=== PATIENT | female | born 1990 | race Caucasian/White ===

== ENCOUNTER 2021-03-13 11:50 | Emergency (ER) | payer OTHER ==
[~2021-03-13] VITALS: Ht 167.6 cm; Wt 77.3 kg
[2021-03-13 11:59] VITALS: BP 117/64
[2021-03-13] MEDS ORDERED: ADDE30CA3 PO (12:00)
[2021-03-13] MEDS ORDERED: ACET-897 PO (12:00)
[2021-03-13 12:30] LABS: BASO % 0.6 % (0.0-1.0); EOS % 0.4 % (0.0-3.0); HEMATOCRIT 39.6 % (36.0-47.0); HEMOGLOBIN 13.1 g/dl (12.0-15.5); LYMPH # 1.6 10^3/uL (1.5-5.0); LYMPH % 30.9 % (24.0-44.0); MEAN CORPUSCULAR HEMOGLOBIN 29.9 pg (27.0-33.0); MEAN CORPUSCULAR HGB CONC 33.1 g/dl (32.0-36.5); MEAN CORPUSCULAR VOLUME 90.4 fl (80.0-96.0); MONO # 0.4 10^3/uL (0.0-0.8); MONO % 8.3 % (2.0-8.0); NEUTROPHILS # 3.1 10^3/uL (1.5-8.5); NEUTROPHILS % 59.6 % (36.0-66.0); PLATELET COUNT, AUTOMATED 258 10^3/uL (150-450); RED BLOOD COUNT 4.38 10^6/uL (4.00-5.40); WHITE BLOOD COUNT 5.2 10^3/uL (4.0-10.0)
[2021-03-13] MEDS ORDERED: KETOROLAC 30 MG/ML 1ML VIAL IV ONE (12:55)
[2021-03-13 12:58] LABS: BLOOD UREA NITROGEN 11 MG/DL (7-18); CALCIUM LEVEL 8.6 MG/DL (8.5-10.1); CARBON DIOXIDE LEVEL 29 MEQ/L (21-32); CHLORIDE LEVEL 108 MEQ/L (98-107); GLOMERULAR FILTRATION RATE > 60.0 (>60); GLUCOSE, FASTING 93 MG/DL (70-100); POTASSIUM SERUM 4.2 MEQ/L (3.5-5.1); SODIUM LEVEL 141 MEQ/L (136-145)
[2021-03-13] MEDS ORDERED: NS 1,000 ML IV ONE (13:05)
[2021-03-13] MEDS ORDERED: MORPHINE 2 MG/ML 1ML VIAL (J2270) IV ONE (13:30)
--- NOTE | 2021-03-13 15:05 | REP ---
INDICATION: RLQ pain; hx of ovarian cysts. COMPARISON: None. TECHNIQUE: Transabdominal and transvaginal scanning were performed. FINDINGS: Uterine dimensions are normal at 8.4 x 4.0 x 5.3 cm. Endometrial echo is 0.5 cm thick and centrally placed. No free fluid is seen in the cul-de-sac. Visualized bladder kearns are smooth. The right ovary has dimensions of 3.7 x 2.8 x 2.8 cm. It's Doppler flow is normal with a resistive index of 0.73. There is a 2.4 x 2.3 x 2.2 cm simple cyst in the right ovary. The left ovary dimensions are normal as well at 2.4 x 1.4 x 1.6 cm. It's Doppler flow was normal with resistive index of 0.72. IMPRESSION: Normal pelvic sonography. 2.4 cm follicle cyst right ovary. <Electronically signed by Bg Melendez > 03/13/21 [id number]
[2021-03-13] MEDS ORDERED: HYDR-3713 PO (15:41)
== END 2021-03-13 23:07 | disposition home or self-care (01) ==
LOC: EDBD 11:50 → M ED 11:50
DX: N83.201 Unspecified ovarian cyst, right side (principal); F90.9 Attention-deficit hyperactivity disorder, unspecified type; Z79.899 Other long term (current) drug therapy; Z88.1 Allergy status to other antibiotic agents; Z88.2 Allergy status to sulfonamides; Z88.8 Allergy status to other drugs, medicaments and biological substances; Z87.42 Personal history of other diseases of the female genital tract
CPT/HCPCS: 76830; 76856; 80048; 81001; 84702; 85025; 93976; 96374; 96375; 99283; J1885; J2270

== ENCOUNTER → 2021-06-04 | Outpatient (REF) | payer OTHER ==
[~2021-06-04] MED LIST: ACET-897 PO; ADDE30CA3 PO; HYDR-3713 PO
[2021-06-04 17:00] LABS: HEMATOCRIT 39.1 % (36.0-47.0); HEMOGLOBIN 13.2 g/dl (12.0-15.5); MEAN CORPUSCULAR HEMOGLOBIN 30.1 pg (27.0-33.0); MEAN CORPUSCULAR HGB CONC 33.8 g/dl (32.0-36.5); MEAN CORPUSCULAR VOLUME 89.3 fl (80.0-96.0); PLATELET COUNT, AUTOMATED 307 10^3/uL (150-450); RED BLOOD COUNT 4.38 10^6/uL (4.00-5.40); WHITE BLOOD COUNT 9.9 10^3/uL (4.0-10.0)
[2021-06-04 18:50] LABS: HCG, SERUM QUANTITATIVE 108948 MIU/ML; HEPATITIS B SURFACE ANTIGEN NEGATIVE (NEGATIVE); HEPATITIS C VIRUS ABY INDEX < 0.0 INDEX (<0.8); HIV 1&2 SCREEN CENTAUR NEGATIVE (NEGATIVE)
== END ==
LOC: M LAB REF 16:23
PROVIDERS: ATTEND Advanced Practice Midwife
DX: O36.80X0 Pregnancy with inconclusive fetal viability, not applicable or unspecified (principal); Z32.01 Encounter for pregnancy test, result positive; Z3A.00 Weeks of gestation of pregnancy not specified

== ENCOUNTER 2021-07-15 17:54 | Emergency (ER) | payer OTHER ==
[~2021-07-15] VITALS: Ht 167.6 cm; Wt 80.2 kg
[2021-07-15] MEDS ORDERED: PRENTAB9 PO (18:05)
[2021-07-15] MEDS ORDERED: ZOFR4TAB16 PO (18:05)
[2021-07-15] MEDS ORDERED: PYRI25TA2 PO (18:05)
[2021-07-15] MEDS ORDERED: ONDANSETRON 4MG/2ML VIAL IV ONE (23:35)
[2021-07-15] MEDS ORDERED: NS 1,000 ML IV ONE (23:35)
[2021-07-16 00:21] LABS: BASO % 0.2 % (0.0-1.0); EOS % 0.4 % (0.0-3.0); HEMATOCRIT 37.9 % (36.0-47.0); HEMOGLOBIN 12.9 g/dl (12.0-15.5); LYMPH # 2.9 10^3/uL (1.5-5.0); LYMPH % 30.1 % (24.0-44.0); MEAN CORPUSCULAR HEMOGLOBIN 30.6 pg (27.0-33.0); MEAN CORPUSCULAR VOLUME 89.8 fl (80.0-96.0); MONO # 0.7 10^3/uL (0.0-0.8); MONO % 7.2 % (2.0-8.0); NEUTROPHILS # 5.9 10^3/uL (1.5-8.5); NEUTROPHILS % 61.7 % (36.0-66.0); PLATELET COUNT, AUTOMATED 279 10^3/uL (150-450); RED BLOOD COUNT 4.22 10^6/uL (4.00-5.40); WHITE BLOOD COUNT 9.6 10^3/uL (4.0-10.0)
[2021-07-16] MEDS ORDERED: ACETAMINOPHEN 325 MG TAB PO ONE (00:25)
[2021-07-16 00:47] LABS: ALBUMIN 3.4 GM/DL (3.2-5.2); ALT/SGPT 30 U/L (12-78); BILIRUBIN,DIRECT < 0.1 MG/DL (0.0-0.2); BILIRUBIN,TOTAL 0.3 MG/DL (0.2-1.0); BLOOD UREA NITROGEN 8 MG/DL (7-18); CALCIUM LEVEL 8.4 MG/DL (8.5-10.1); CARBON DIOXIDE LEVEL 26 MEQ/L (21-32); CHLORIDE LEVEL 104 MEQ/L (98-107); CREATININE FOR GFR 0.54 MG/DL (0.55-1.30); GLOMERULAR FILTRATION RATE > 60.0 (>60); GLUCOSE, FASTING 83 MG/DL (70-100); LIPASE 90 U/L (73-393); POTASSIUM SERUM 3.7 MEQ/L (3.5-5.1); SODIUM LEVEL 137 MEQ/L (136-145); TOTAL PROTEIN 7.2 GM/DL (6.4-8.2)
[2021-07-16 01:32] LABS: RSV AMPLIFICATION NEGATIVE (NEGATIVE)
[2021-07-16 02:00] VITALS: BP 106/58
--- NOTE | 2021-07-16 02:13 | REPVR ---
PROCEDURE INFORMATION: Exam: US , Limited Exam date and time: 07/16/2021 12:28 AM Age: 30 years old Clinical indication: Lmp or gestational age (in weeks): 15w 6d; Antepartum complications; Other: Maternal dehydration; ; Additional info: Dehydration/feeling ill/ TECHNIQUE: Imaging protocol: Real-time ultrasound of the maternal uterus with image documentation. Exam focused on the clinical indication. COMPARISON: US PELVIC NON-OB COMPLETE 2021-03-13 14:05 FINDINGS: Gestation: Living intrauterine gestation. heart rate: heart rate 152 bpm. presentation: Transverse presentation. Placenta: Grade 0 posterior placenta. No placenta previa. Amniotic fluid: Normal amniotic fluid. BIOMETRY: Estimated due date (AUA): Estimated due date 01/01/2022. Gestational age (AUA): Gestational age 15 weeks and 6 days. MATERNAL: Cervix: Closed 3.7 cm cervix. IMPRESSION: Unremarkable limited exam. Living intrauterine gestation measuring 15 weeks and 6 days with due date 01/01/2022. Electronically signed by: Farhad Lares On 07/16/2021 02:12:40 AM
== END 2021-07-16 02:04 | disposition home or self-care (01) ==
LOC: M ED 17:54
DX: O21.1 Hyperemesis gravidarum with metabolic disturbance (principal); O26.892 Other specified pregnancy related conditions, second trimester; Z3A.15 15 weeks gestation of pregnancy; Z88.2 Allergy status to sulfonamides; Z88.8 Allergy status to other drugs, medicaments and biological substances
CPT/HCPCS: 76815; 80053; 82248; 83690; 85025; 87631; 96361; 96374; 99284; J2405

== ENCOUNTER → 2021-12-10 | Outpatient (REF) | payer OTHER ==
[~2021-12-10] MED LIST changes: +BUSP5TA PO; +ONDA-83 PO; +PEPC1TAB5 PO; +PRENTAB9 PO; +PYRI25TA2 PO; +ZOFR4TAB16 PO
== END ==
LOC: M LAB REF 12:27
PROVIDERS: ATTEND Obstetrics & Gynecology
DX: Z34.83 Encounter for supervision of other normal pregnancy, third trimester (principal)

== ENCOUNTER 2021-12-23 05:33 | Inpatient (IN) | payer OTHER ==
[2021-12-23] VITALS (8 sets, daily range): BP systolic 105–131; BP diastolic 53–69
[~2021-12-23] VITALS: Ht 167.6 cm; Wt 99.4 kg
[2021-12-23 06:17] LABS: HEMATOCRIT 36.4 % (36.0-47.0); HEMOGLOBIN 12.4 g/dl (12.0-15.5); MEAN CORPUSCULAR HEMOGLOBIN 31.3 pg (27.0-33.0); MEAN CORPUSCULAR HGB CONC 34.1 g/dl (32.0-36.5); MEAN CORPUSCULAR VOLUME 91.9 fl (80.0-96.0); PLATELET COUNT, AUTOMATED 256 10^3/uL (150-450); RED BLOOD COUNT 3.96 10^6/uL (4.00-5.40); WHITE BLOOD COUNT 9.6 10^3/uL (4.0-10.0)
[2021-12-23] MEDS ORDERED: OXYTOCIN DRIP 30 UNITS in IV 1 EA IV PRN (06:20)
[2021-12-23] MEDS ORDERED: BICITRA 30ML SOLN UDC PO ONE (06:20)
[2021-12-23] MEDS ORDERED: TUMS500C PO (06:20)
[2021-12-23] MEDS ORDERED: TRANEXAMIC ACID INJection 1,000 MG in NS 100 ML IV PRN (06:20)
[2021-12-23] MEDS ORDERED: CARBOPROST TROMETHAMINE 250 MCG/ML AMP IM PRN (06:20)
[2021-12-23] MEDS ORDERED: HOME MED LIST COMPLETE! XX SCH (06:20)
[2021-12-23] MEDS ORDERED: ACET325C5 PO (06:20)
[2021-12-23] MEDS ORDERED: ceFAZolin SOD 2 GM in IV 1 EA IV ONE (06:20)
[2021-12-23] MEDS ORDERED: METHYLERGONOVINE MALEATE 0.2 MG/ML VIAL (J2210) IM PRN (06:20)
[2021-12-23] MEDS: LR 1,000 ML IV SCH ×2 (06:38→07:17)
[2021-12-23] MEDS ORDERED: ONDANSETRON 4MG/2ML VIAL As Ordered ONE (07:52)
[2021-12-23] MEDS ORDERED: MORPHINE PRES-FREE INJ 10 MG/10 ML VIAL As Ordered ONE (07:52)
[2021-12-23] MEDS ORDERED: NALOXONE INJ 0.4MG/1ML VIAL (J2310 PER 1MG) IV PRN ×2 (07:56)
[2021-12-23] MEDS ORDERED: ONDANSETRON 4MG/2ML VIAL IV PRN ×2 (07:56→09:30)
[2021-12-23] MEDS ORDERED: diphenhydrAMINE 50MG/ML VIAL (J1200) IV PRN (07:56)
[2021-12-23] MEDS ORDERED: METOCLOPRAMIDE INJ 10MG/2ML VIAL (J2765 PER 1) IV PRN (07:56)
[2021-12-23] MEDS ORDERED: ACETAMINOPHEN 1000MG 100ML IV BTL (OFIRMEV) (J0131 PER 10MG) As Ordered ONE (08:04)
[2021-12-23] MEDS ORDERED: ePHEDrine SULFATE 25 MG/5 ML(5MG/ML) SYRINGE As Ordered ONE ×2 (08:06→08:09)
[2021-12-23] MEDS ORDERED: METOCLOPRAMIDE INJ 10MG/2ML VIAL (J2765 PER 1) As Ordered ONE (08:11)
[2021-12-23] MEDS ORDERED: KETOROLAC 60MG 2ML VIAL As Ordered ONE (08:16)
[2021-12-23] MEDS ORDERED: OXYTOCIN 30 UNITS IN 0.9% NaCl 500ML IV BAG (J2590) As Ordered ONE ×2 (08:29→08:40)
[2021-12-23 08:42] LABS: CORD GAS ABE A -1.1; CORD GAS HCO3 A 25.4 MEQ/L; CORD GAS O2 SAT A 29.8 %; CORD GAS PCO2 A 49.3 mmHg; CORD GAS PH A 7.329 UNITS; CORD GAS PO2 A 15.1 mmHg; CORD GAS SBC A 22.1 MEQ/L; CORD GAS TCO2 A 26.9 MEQ/L
[2021-12-23 08:43] LABS: CORD GAS HCO3 V 25.4 MEQ/L; CORD GAS PCO2 V 44.3 mmHg; CORD GAS PH V 7.377 UNITS; CORD GAS PO2 V 21.7 mmHg; CORD GAS SBC V 23.5 MEQ/L; CORD GAS TCO2 V 26.8 MEQ/L
[2021-12-23] MEDS ORDERED: MEASLES,MUMPS,RUBELLA VACCINE INJ (MMR-II) (90707) SC SCH (09:00)
[2021-12-23] MEDS ORDERED: SCOPOLAMINE 1MG TRANSDERMAL PATCH TOP SCH (09:00)
[2021-12-23] MEDS ORDERED: RHOGAM 300 MCG (1500 IU) INJ (J2790) IM SCH (09:00)
[2021-12-23] MEDS ORDERED: OXYTOCIN DRIP 30 UNITS in IV 1 EA IV SCH (09:00)
[2021-12-23] MEDS: DOCUSATE SODIUM 100MG CAPSULE PO SCH ×2 (09:00→20:45)
[2021-12-23] MEDS: PRENATAL VITAMINS CHEWABLE TABLET PO SCH (09:00)
[2021-12-23] MEDS ORDERED: MOM 30ML SUSPENSION UDC PO PRN (09:00)
[2021-12-23] MEDS ORDERED: oxyCODONE 5MG TAB PO PRN (09:30)
[2021-12-23] MEDS ORDERED: LR 1,000 ML IV SCH (09:30)
[2021-12-23] MEDS ORDERED: fentaNYL 100 MCG/2 ML INJECTION IV PRN (09:30)
[2021-12-23] MEDS ORDERED: CALCIUM CARBONATE 500 MG CHEW U/D PO PRN (10:10)
[2021-12-23] MEDS ORDERED: ONDANSETRON 4MG/2ML VIAL IV STA (12:39)
[2021-12-23] MEDS: KETOROLAC 30 MG/ML 1ML VIAL IV SCH ×2 (14:40→20:45)
[2021-12-23] MEDS: PERCOCET 5MG/325MG TAB PO PRN ×2 (16:44→22:56)
[2021-12-23] MEDS: SIMETHICONE 80MG CHEW TAB PO PRN (22:55)
[2021-12-24 02:00] VITALS: BP 112/64
[2021-12-24] MEDS: KETOROLAC 30 MG/ML 1ML VIAL IV SCH (02:39)
[2021-12-24 06:00] VITALS: BP 107/55
[2021-12-24] MEDS: PERCOCET 5MG/325MG TAB PO PRN ×4 (06:17→21:12)
[2021-12-24 07:24] LABS: HEMATOCRIT 32.9 % (36.0-47.0); HEMOGLOBIN 11.2 g/dl (12.0-15.5); MEAN CORPUSCULAR HEMOGLOBIN 30.8 pg (27.0-33.0); MEAN CORPUSCULAR VOLUME 90.4 fl (80.0-96.0); PLATELET COUNT, AUTOMATED 243 10^3/uL (150-450); RED BLOOD COUNT 3.64 10^6/uL (4.00-5.40); WHITE BLOOD COUNT 10.7 10^3/uL (4.0-10.0)
[2021-12-24 10:00] VITALS: BP 110/70
[2021-12-24] MEDS: PRENATAL VITAMINS CHEWABLE TABLET PO SCH (10:16)
[2021-12-24] MEDS: DOCUSATE SODIUM 100MG CAPSULE PO SCH ×2 (10:17→21:11)
[2021-12-24] MEDS: IBUPROFEN 800 MG TAB PO SCH ×2 (10:17→18:01)
[2021-12-24] MEDS: SIMETHICONE 80MG CHEW TAB PO PRN ×2 (10:59→18:01)
[2021-12-24 14:00] VITALS: BP 122/71
[2021-12-24 18:00] VITALS: BP 120/68
[2021-12-24] MEDS: busPIRone 5 MG TAB PO PRN (18:19)
[2021-12-24 21:57] VITALS: BP 114/54
[2021-12-25] MEDS: PERCOCET 5MG/325MG TAB PO PRN ×3 (01:03→10:13)
[2021-12-25 02:00] VITALS: BP 125/58
[2021-12-25] MEDS: IBUPROFEN 800 MG TAB PO SCH ×2 (02:34→10:13)
[2021-12-25 05:31] VITALS: BP 113/71
[2021-12-25] MEDS ORDERED: BOOSTRIX/ADACEL VACCINE (DIPHTH/PERTUSS/ACELL/TETANUS) 0.5ML SYR IM ONE (09:00)
[2021-12-25] MEDS ORDERED: INFLUENZA QUADRIVALENT PF VACCINE 0.5ML SYRINGE IM ONE (09:00)
[2021-12-25] MEDS: SIMETHICONE 80MG CHEW TAB PO PRN (09:05)
[2021-12-25] MEDS: DOCUSATE SODIUM 100MG CAPSULE PO SCH (09:05)
[2021-12-25] MEDS: PRENATAL VITAMINS CHEWABLE TABLET PO SCH (09:05)
[2021-12-25] MEDS: busPIRone 5 MG TAB PO PRN (09:05)
[2021-12-25 09:58] VITALS: BP 116/59
[2021-12-25] MEDS ORDERED: OXYC1TAB23 PO (11:42)
[2021-12-25] MEDS ORDERED: IBUP80TA PO (11:42)
== END 2021-12-25 12:15 | disposition home or self-care (01) | DRG 773 ==
LOC: M LDI 05:33 → M OBS 10:29
PROVIDERS: ADMIT Obstetrics & Gynecology; ATTEND Obstetrics & Gynecology
PROC: 0HB7XZZ Excision of Abdomen Skin, External Approach (ICD-10-PCS; 2021-12-23)
PROC: 10D00Z1 Extraction of Products of Conception, Low, Open Approach (ICD-10-PCS; principal; 2021-12-23 07:30)
DX: O34.211 Maternal care for low transverse scar from previous cesarean delivery (principal); Z37.0 Single live birth; Z3A.39 39 weeks gestation of pregnancy; Z88.2 Allergy status to sulfonamides; Z88.8 Allergy status to other drugs, medicaments and biological substances

== ENCOUNTER 2023-03-30 19:29 | Outpatient (CLI) | payer OTHER ==
[~2023-03-30] VITALS: Ht 167.6 cm; Wt 108.7 kg
[~2023-03-30 19:29] MED LIST changes: +ACET325C5 PO; +IBUP80TA PO; +OXYC1TAB23 PO; +TUMS500C PO
[2023-03-30 19:51] VITALS: BP 125/66
[2023-03-30 21:22] LABS: APPEARANCE, URINE HAZY (CLEAR); BACTERIA, URINE AUTO NEGATIVE (NEGATIVE); BILIRUBIN, URINE AUTO NEGATIVE (NEGATIVE); BLOOD, URINE BLOOD NEGATIVE (NEGATIVE); COLOR, URINE YELLOW (YELLOW); GLUCOSE, URINE (UA) AUTO NEGATIVE (NEGATIVE); KETONE, URINE AUTO NEGATIVE (NEGATIVE); LEUKOCYTE ESTERASE, URINE AUTO NEGATIVE (NEGATIVE); MUCUS, URINE SMALL (NEGATIVE); NITRITE, URINE AUTO NEGATIVE (NEGATIVE); PROTEIN, URINE AUTO NEGATIVE (NEGATIVE); RBC, URINE AUTO 0 /HPF (0-3); SPECIFIC GRAVITY URINE AUTO 1.014 (1.002-1.035); SQUAMOUS EPITHELIAL CELL UR AU 3 /HPF (0-6); UROBILINOGEN, URINE AUTO 0.2 mg/dL (0.0-2.0); WBC, URINE AUTO 0 /HPF (0-3)
== END 2023-03-30 21:06 | disposition home or self-care (01) ==
LOC: M LDO 19:29
PROVIDERS: ATTEND Obstetrics & Gynecology
DX: O47.03 False labor before 37 completed weeks of gestation, third trimester (principal); Z3A.34 34 weeks gestation of pregnancy; O34.219 Maternal care for unspecified type scar from previous cesarean delivery; Z88.2 Allergy status to sulfonamides; Z88.8 Allergy status to other drugs, medicaments and biological substances
CPT/HCPCS: 59025; 81001; 87086; G0463

== ENCOUNTER 2023-05-05 07:18 | Inpatient (IN) | payer OTHER ==
[~2023-05-05] VITALS: Ht 167.6 cm; Wt 113.0 kg
[2023-05-05] VITALS (10 sets, daily range): BP systolic 127–143; BP diastolic 65–83; TEMP 97.7; O2SAT 97–100
[~2023-05-05 07:18] MED LIST changes: +CYCL-707 PO; +ONDA-195 PO; +PEPC40TA12 PO; +TYLE650T38 PO; +ZOLO25TA PO
[2023-05-05] MEDS ORDERED: HOME MED LIST COMPLETE! XX SCH (07:35)
[2023-05-05] MEDS ORDERED: LACTATED RINGER'S 1000 ML IV STA (07:59)
[2023-05-05] MEDS ORDERED: OXYTOCIN DRIP 30 UNITS in IV 1 EA IV PRN (08:00)
[2023-05-05] MEDS ORDERED: LR 1,000 ML IV SCH (08:00)
[2023-05-05] MEDS ORDERED: CARBOPROST TROMETHAMINE 250 MCG/ML AMP IM PRN (08:00)
[2023-05-05] MEDS ORDERED: METHYLERGONOVINE MALEATE 0.2MG/ML 1ML VIAL IM PRN (08:00)
[2023-05-05] MEDS ORDERED: TRANEXAMIC ACID INJection 1,000 MG in NS 100 ML IV PRN (08:00)
[2023-05-05] MEDS ORDERED: OXYTOCIN INJ 10UNITS/ML 1ML VIAL IM PRN (08:00)
[2023-05-05] MEDS ORDERED: BICITRA 30ML SOLN UDC PO ONE (08:00)
[2023-05-05] MEDS ORDERED: ceFAZolin SOD 2 GM in IV 1 EA IV ONE (08:00)
[2023-05-05 08:34] LABS: HEMATOCRIT 35.7 % (36.0-47.0); HEMOGLOBIN 12.1 g/dl (12.0-15.5); MEAN CORPUSCULAR HEMOGLOBIN 30.4 pg (27.0-33.0); MEAN CORPUSCULAR HGB CONC 33.9 g/dl (32.0-36.5); MEAN CORPUSCULAR VOLUME 89.7 fl (80.0-96.0); PLATELET COUNT, AUTOMATED 268 10^3/uL (150-450); RED BLOOD COUNT 3.98 10^6/uL (4.00-5.40); WHITE BLOOD COUNT 9.5 10^3/uL (4.0-10.0)
[2023-05-05] MEDS ORDERED: MORPHINE PRES-FREE INJ 10 MG/10 ML VIAL As Ordered ONE (09:20)
[2023-05-05] MEDS ORDERED: KETOROLAC 60MG 2ML VIAL As Ordered ONE (09:20)
[2023-05-05] MEDS ORDERED: ONDANSETRON 4MG 2ML VIAL As Ordered ONE (09:21)
[2023-05-05] MEDS ORDERED: ONDANSETRON 4MG 2ML VIAL IV ONE (09:50)
[2023-05-05] MEDS ORDERED: OXYTOCIN 30UNITS IN 0.9% NaCl 500ML IV BAG As Ordered ONE ×2 (10:22→11:37)
[2023-05-05] MEDS ORDERED: ACETAMINOPHEN 1000MG 100ML IV BAG As Ordered ONE (10:22)
[2023-05-05] MEDS ORDERED: GLYCOPYRROLATE INJ 0.2 MG/ML 2 ML VIAL As Ordered ONE (10:45)
[2023-05-05] MEDS ORDERED: ePHEDrine SULFATE 25 MG/5 ML(5MG/ML) SYRINGE As Ordered ONE (10:58)
[2023-05-05] MEDS ORDERED: ACETAMINOPHEN TAB 650MG DOSE (2X325MG) PO PRN (11:45)
[2023-05-05] MEDS ORDERED: RHOGAM 300MCG (1500IU) INJ IM SCH (11:45)
[2023-05-05] MEDS ORDERED: CYCLOBENZAPRINE 10MG TABLET PO PRN (11:45)
[2023-05-05] MEDS ORDERED: MOM 30ML SUSPENSION UDC PO PRN (11:45)
[2023-05-05] MEDS ORDERED: **NOTE PATIENT COMMENT** MISC XX SCH (12:30)
[2023-05-05] MEDS ORDERED: fentaNYL 100 MCG/2 ML INJECTION IV PRN (12:30)
[2023-05-05] MEDS ORDERED: ONDANSETRON 4MG 2ML VIAL IV PRN (12:30)
[2023-05-05] MEDS ORDERED: NALOXONE INJ 0.4MG/1ML VIAL IV PRN ×2 (12:30)
[2023-05-05] MEDS ORDERED: MEPERIDINE 25 MG/ML 1ML VIAL IV PRN (12:30)
[2023-05-05] MEDS ORDERED: oxyCODONE 5MG TAB PO PRN (12:30)
[2023-05-05] MEDS ORDERED: HYDROMORPHONE HCL 0.5 MG/ 0.5 ML SYRINGE IV PRN (12:30)
[2023-05-05] MEDS ORDERED: diphenhydrAMINE 50MG/ML VIAL IV PRN (12:30)
[2023-05-05] MEDS ORDERED: fentaNYL 100 MCG/2 ML INJECTION As Ordered ONE (12:57)
[2023-05-05] MEDS: METOCLOPRAMIDE INJ 10MG/2ML VIAL IV PRN ×2 (15:16→20:44)
[2023-05-05] MEDS: oxyCODONE 5MG TAB PO PRN ×2 (15:45→21:43)
[2023-05-05] MEDS: KETOROLAC 30 MG/ML 1ML VIAL IV SCH ×2 (17:45→23:55)
[2023-05-05] MEDS: FAMOTIDINE 20 MG TAB PO SCH (17:53)
[2023-05-05] MEDS: SERTRALINE HCL 25 MG TABLET PO SCH (17:53)
[2023-05-05] MEDS: SLF 3 ML SYR IV SCH (20:30)
[2023-05-05] MEDS: ACETAMINOPHEN 500 MG TAB PO PRN (20:58)
[2023-05-05] MEDS: PRENATAL VITAMINS CHEWABLE TABLET PO SCH (21:43)
[2023-05-06] VITALS: BP 127/66; O2SAT 97
[2023-05-06] MEDS: ACETAMINOPHEN 500 MG TAB PO PRN ×2 (02:52→10:44)
[2023-05-06] MEDS: SLF 3 ML SYR IV SCH (04:30)
[2023-05-06 04:45] VITALS: BP 143/71; O2SAT 97
[2023-05-06] MEDS: KETOROLAC 30 MG/ML 1ML VIAL IV SCH (04:47)
[2023-05-06] MEDS: oxyCODONE 5MG TAB PO PRN ×4 (06:25→21:37)
[2023-05-06 08:01] LABS: HEMATOCRIT 30.8 % (36.0-47.0); HEMOGLOBIN 10.2 g/dl (12.0-15.5); MEAN CORPUSCULAR HEMOGLOBIN 30.4 pg (27.0-33.0); MEAN CORPUSCULAR HGB CONC 33.1 g/dl (32.0-36.5); MEAN CORPUSCULAR VOLUME 91.7 fl (80.0-96.0); PLATELET COUNT, AUTOMATED 209 10^3/uL (150-450); RED BLOOD COUNT 3.36 10^6/uL (4.00-5.40); WHITE BLOOD COUNT 9.5 10^3/uL (4.0-10.0)
[2023-05-06] MEDS ORDERED: PRENATAL VITAMINS CHEWABLE TABLET PO SCH (09:00)
[2023-05-06] MEDS: SERTRALINE HCL 25 MG TABLET PO SCH (10:43)
[2023-05-06] MEDS: FAMOTIDINE 20 MG TAB PO SCH (10:44)
[2023-05-06] MEDS: SIMETHICONE 80MG CHEW TAB PO PRN ×2 (12:44→21:37)
[2023-05-06] MEDS: IBUPROFEN 800 MG TAB PO SCH ×2 (12:45→21:23)
[2023-05-06] MEDS: PRENATAL VITAMINS CHEWABLE TABLET PO SCH (21:23)
[2023-05-06 22:00] VITALS: BP 137/80; O2SAT 98
[2023-05-07 02:00] VITALS: BP 142/88; O2SAT 99
[2023-05-07] MEDS: SIMETHICONE 80MG CHEW TAB PO PRN (03:14)
[2023-05-07] MEDS: ACETAMINOPHEN 500 MG TAB PO PRN ×2 (03:15→10:20)
[2023-05-07] MEDS: oxyCODONE 5MG TAB PO PRN ×2 (05:13→10:35)
[2023-05-07] MEDS: IBUPROFEN 800 MG TAB PO SCH ×2 (05:13→12:59)
[2023-05-07 06:00] VITALS: BP 130/78; O2SAT 97
[2023-05-07] MEDS ORDERED: MEASLES,MUMPS,RUBELLA VACCINE INJ (MMR-II) SC.IMMUN ONE (09:00)
[2023-05-07] MEDS: SERTRALINE HCL 25 MG TABLET PO SCH (09:28)
[2023-05-07] MEDS: FAMOTIDINE 20 MG TAB PO SCH (09:28)
[2023-05-07 10:03] VITALS: BP 140/79; O2SAT 99
[2023-05-07] MEDS ORDERED: ACET1TAB55 PO (10:25)
[2023-05-07] MEDS ORDERED: OXYC-517 PO (10:25)
[2023-05-07] MEDS ORDERED: IBUP80TA PO (10:25)
== END 2023-05-07 13:45 | disposition home or self-care (01) | DRG 785 ==
LOC: M LDI 07:18 → M PED 13:15
PROVIDERS: ADMIT Obstetrics & Gynecology; ATTEND Obstetrics & Gynecology
PROC: 0UB70ZZ Excision of Bilateral Fallopian Tubes, Open Approach (ICD-10-PCS; 2023-05-05)
PROC: 10D00Z1 Extraction of Products of Conception, Low, Open Approach (ICD-10-PCS; principal; 2023-05-05 09:30)
DX: O34.211 Maternal care for low transverse scar from previous cesarean delivery (principal); Z37.0 Single live birth; Z3A.39 39 weeks gestation of pregnancy; Z30.2 Encounter for sterilization